=== PATIENT | female | born 1985 | race Caucasian/White ===

== ENCOUNTER → 2017-01-06 | Outpatient (CLI) | payer BC ==
--- NOTE | 2017-01-06 15:38 | RAD ---
CT abdomen and pelvis without contrast 01/06/2017 Indication: Left flank pain for 2 weeks, hematuria. Comparison: None. Technique: CT helical acquisition of the abdomen and pelvis was obtained without contrast. Coronal and sagittal reformations were obtained. PQRS Compliance Statement: One or more of the following individualized dose reduction techniques were utilized for this examination: 1. Automated exposure control 2. Adjustment of the mA and/or kV according to patient size 3. Use of iterative reconstruction technique Findings: Abdomen and pelvis: Heart size and visualized lung bases are within normal limits. Evaluation of the solid abdominopelvic viscera, lymphadenopathy and vasculature is limited in the absence of intravenous contrast. Unenhanced contours of the liver, spleen, gallbladder, adrenal glands, pancreas and kidneys are within normal limits. No hydroureteronephrosis or radiopaque urolithiasis. Abdominal aorta is normal in caliber. Small and large bowel loops are normal in caliber without obstruction. No abdominal free fluid. Mild distended unopacified urinary bladder, uterus and adnexa are within normal limits for age. No iliac or inguinal lymphadenopathy. No pelvic free fluid. There are no destructive osseous lesions. Impression: No CT etiology for patient's reported left flank pain, specifically no hydroureteronephrosis or urolithiasis.
== END | disposition home or self-care (01) ==
LOC: CT 14:58
PROVIDERS: ATTEND Nurse Practitioner Family
DX: R10.84 Generalized abdominal pain (principal); R31.9 Hematuria, unspecified
CPT/HCPCS: 74176

== ENCOUNTER 2018-09-07 20:40 | Emergency (ER) | payer BC ==
[~2018-09-07] VITALS: Ht 165.1 cm; Wt 64.4 kg
--- NOTE | 2018-09-07 20:51 | ED.ADGEN ---
Adult General Chief Complaint Chief Complaint ".. I got blood in my stool. .. it stock to go to the bathroom...." " This all started about 2 weeks ago.. Diarrhea - 4 x day or so, ...then some mucus stools, ... I seen Dr. [facility]ise [facility] PA... and they said avoid milk and put me on a special diet... but I still having burning and bright red blood when I stool... " HPI HPI Patient is a 33 year old female who presents with above hx and complaints of blood in stool. Pt. complaints of burning with defecation. Patient denies any previous history of ulcerative colitis or Crohn's. But her sister had a diagnosis of Crohn's at her age. Patient denies any history coagulopathy. Patient denies any trauma. Patient denies any rectal sex. Patient denies any history of constipation. Patient still having somewhat loose stools. Patient states the blood is bright red. Patient takes no NSAIDs. Patient is normally healthy. No recent travel or specific ill contacts. No contact with reptiles, amphibians, birds, ect. No hx bad food intake. On city water. Did have a course of antibiotics over a month ago for bacterial vaginosis. No hx of immunosuppression. Hx. of prior and deliveries. Review of Systems Review of Systems Constitutional: Denies fever or chills [] Eyes: Denies change in visual acuity, redness, or eye pain [] HENT: Denies nasal congestion or sore throat [] Respiratory: Denies cough or shortness of breath [] Cardiovascular: No additional information not addressed in HPI [] GI: Denies abdominal pain, nausea, vomiting, Hx of bloody stools and diarrhea [ ]Burning with defecation. : Denies dysuria or hematuria [] Musculoskeletal: Denies back pain or joint pain [] Integument: Denies rash or skin lesions [] Neurologic: Denies headache, focal weakness or sensory changes [] Endocrine: Denies polyuria or polydipsia [] All other systems were reviewed and found to be within normal limits, except as documented in this note. Family History Family History Sister has a history of Crohn's Current Medications Current Medications Current Medications Medications (Trade) Dose Ordered Sig/[place] Start Time Stop Time Status Last Admin Dose Admin Lactated Ringer's 1,000 ml @ 1,000 mls/hr Q1H 3/29/19 22:00 09/07/18 22:59 09/07/18 21:46 1,000 MLS/HR Allergies Allergies Allergies Coded Allergies Type Severity Reaction Last Updated Verified No Known Drug Allergies 09/07/18 No Physical Exam Physical Exam Constitutional: Well developed, well nourished, Moderately acute distress, non- toxic appearance. [] HENT: Normocephalic, atraumatic, bilateral external ears normal, oropharynx moist, no oral exudates, nose normal. [] Eyes: PERRLA, EOMI, conjunctiva normal, no discharge. [] Neck: Normal range of motion, no tenderness, supple, no stridor. [] Cardiovascular:Heart rate regular rhythm, no murmur [] Lungs & Thorax: Bilateral breath sounds clear to auscultation [] Abdomen: Bowel sounds normal, soft, lower pelvic tenderness, distended, no masses, no pulsatile masses. [Rectal shows no external hemorrhoids. No obvious large fissure. Digital exam did not produce active bleeding. Patient reports no particular tenderness on digital exam. No obvious bleeding from vaginal area or other discharge. Skin: Warm, dry, no erythema, no rash. No signs of petechiae or excessive bruising Back: No tenderness, no CVA tenderness. [] Extremities: No tenderness, no cyanosis, no clubbing, ROM intact, no edema. [] No psoas sign. Neurologic: Alert and oriented X 3, normal motor function, normal sensory function, no focal deficits noted. [] Psychologic: Affect anxious, judgement normal, mood normal. [] Current Patient Data Vital Signs Vital Signs Date Time Temp Pulse Resp B/P (MAP) Pulse Ox O2 Delivery O2 Flow Rate FiO2 09/07/18 20:55 97.8 120 18 100 Room Air Lab Results Laboratory Tests Test 09/07/18 20:55 09/07/18 21:00 09/07/18 21:09 09/07/18 21:31 Urine Collection Type Unknown Urine Color Yellow Urine Clarity Cloudy Urine pH 7.5 Urine Specific [place] 1.015 Urine Protein Neg (NEG-TRACE) Urine Glucose (UA) Neg mg/dL (NEG) Urine Ketones (Stick) Neg mg/dL (NEG) Urine Blood Small (NEG) Urine Nitrite Neg (NEG) Urine Bilirubin Neg (NEG) Urine Urobilinogen Dipstick 0.2 mg/dL (0.2 mg/dL) Urine Leukocyte Esterase Trace (NEG) Urine RBC 0 /HPF (0-2) Urine WBC 1-4 /HPF (0-4) Urine Squamous Epithelial Cells Occ /LPF Urine Bacteria 0 /HPF (0-FEW) Urine Opiates Screen Neg (NEG) Urine Methadone Screen Neg (NEG) Urine Barbiturates Neg (NEG) Urine Phencyclidine Screen Neg (NEG) Urine Amphetamine/Methamphetamine Neg (NEG) Urine Benzodiazepines Screen Neg (NEG) Urine Cocaine Screen Neg (NEG) Urine Cannabinoids Screen Neg (NEG) Urine Ethyl Alcohol Neg (NEG) Stool Occult Blood Positive (NEG) POC Urine HCG, Qualitative hcg negative (Negative) White Blood Count 7.7 x10^3/uL (4.0-11.0) Red Blood Count 4.65 x10^6/uL (3.50-5.40) Hemoglobin 13.6 g/dL (12.0-15.5) Hematocrit 41.1 % (36.0-47.0) Mean Corpuscular Volume 88 fL (79-100) Mean Corpuscular Hemoglobin 29 pg (25-35) Mean Corpuscular Hemoglobin Concent 33 g/dL (31-37) Red Cell Distribution Width 12.8 % (11.5-14.5) Platelet Count 264 x10^3/uL (140-400) Neutrophils (%) (Auto) 65 % (31-73) Lymphocytes (%) (Auto) 26 % (24-48) Monocytes (%) (Auto) 7 % (0-9) Eosinophils (%) (Auto) 2 % (0-3) Basophils (%) (Auto) 1 % (0-3) Neutrophils # (Auto) 5.0 x10^3uL (1.8-7.7) Lymphocytes # (Auto) 2.0 x10^3/uL (1.0-4.8) Monocytes # (Auto) 0.5 x10^3/uL (0.0-1.1) Eosinophils # (Auto) 0.2 x10^3/uL (0.0-0.7) Basophils # (Auto) 0.0 x10^3/uL (0.0-0.2) Prothrombin Time 10.9 SEC (9.4-11.4) Prothrombin Time INR 1.1 (0.9-1.1) PTT 29 SEC (23-33) Sodium Level 142 mmol/L (136-145) Potassium Level 3.2 mmol/L (3.5-5.1) L Chloride Level 106 mmol/L (98-107) Carbon Dioxide Level 26 mmol/L (21-32) Anion Gap 10 (6-14) Blood Urea Nitrogen 7 mg/dL (7-20) Creatinine 0.7 mg/dL (0.6-1.0) Estimated GFR (Cockcroft-Gault) 97.6 Glucose Level 110 mg/dL (70-99) H Calcium Level 9.1 mg/dL (8.5-10.1) Total Bilirubin 0.3 mg/dL (0.2-1.0) Direct Bilirubin 0.1 mg/dL (0.0-0.2) Aspartate Amino Transferase (AST) 16 U/L (15-37) Alanine Aminotransferase (ALT) 18 U/L (14-59) Alkaline Phosphatase 81 U/L (46-116) Total Protein 7.3 g/dL (6.4-8.2) Albumin 4.1 g/dL (3.4-5.0) Lipase 100 U/L (73-393) EKG EKG [] Radiology/Procedures Radiology/Procedures I interpretation of abdomen film shows[] increased stool throughout the colon. Does not appear to have an obstructive process. Pulmonary cardiac portion of acute abdomen film do not reflect any acute cardiopulmonary findings. No free air under the diaphragm. Course & Med Decision Making Course & Med Decision Making Pertinent Labs and Imaging studies reviewed. (See chart for details). Recommend follow-up with primary care for a scheduled colonoscopy. Follow-up cultures taken here. Remain on a completely clear fluid diet the next 2 days. No milk products. Return if any concerns. Avoid NSAIDs. [] Final Impression Final Impression 1. Outlet Bleeding[]- or lower GI- (Blood is bright red in stool) 2. X-ray suggestive of Constipation- in spite of hx of diarrhea Dragon Disclaimer Dragon Disclaimer This electronic medical record was generated, in whole or in part, using a voice recognition dictation system. Dragon Disclaimer This chart was dictated in whole or in part using Voice Recognition software in a busy, high-work load, and often noisy Emergency Department environment. It may contain unintended and wholly unrecognized errors or omissions. Discharge Summary Visit Information Final Diagnosis Problems Medical Problems: (1) Lower GI bleeding Status: Acute Brief Hospital Course Allergies Allergies Coded Allergies Type Severity Reaction Last Updated Verified No Known Drug Allergies 09/07/18 No Vital Signs Vital Signs Date Time Temp Pulse Resp B/P (MAP) Pulse Ox O2 Delivery O2 Flow Rate FiO2 09/07/18 20:55 97.8 120 18 100 Room Air Lab Results Laboratory Tests Test 09/07/18 20:55 09/07/18 21:00 09/07/18 21:09 09/07/18 21:31 Urine Collection Type Unknown Urine Color Yellow Urine Clarity Cloudy Urine pH 7.5 Urine Specific [place] 1.015 Urine Protein Neg (NEG-TRACE) Urine Glucose (UA) Neg mg/dL (NEG) Urine Ketones (Stick) Neg mg/dL (NEG) Urine Blood Small (NEG) Urine Nitrite Neg (NEG) Urine Bilirubin Neg (NEG) Urine Urobilinogen Dipstick 0.2 mg/dL (0.2 mg/dL) Urine Leukocyte Esterase Trace (NEG) Urine RBC 0 /HPF (0-2) Urine WBC 1-4 /HPF (0-4) Urine Squamous Epithelial Cells Occ /LPF Urine Bacteria 0 /HPF (0-FEW) Urine Opiates Screen Neg (NEG) Urine Methadone Screen Neg (NEG) Urine Barbiturates Neg (NEG) Urine Phencyclidine Screen Neg (NEG) Urine Amphetamine/Methamphetamine Neg (NEG) Urine Benzodiazepines Screen Neg (NEG) Urine Cocaine Screen Neg (NEG) Urine Cannabinoids Screen Neg (NEG) Urine Ethyl Alcohol Neg (NEG) Stool Occult Blood Positive (NEG) Bedside Urine HCG, Qualitative hcg negative (Negative) White Blood Count 7.7 x10^3/uL (4.0-11.0) Red Blood Count 4.65 x10^6/uL (3.50-5.40) Hemoglobin 13.6 g/dL (12.0-15.5) Hematocrit 41.1 % (36.0-47.0) Mean Corpuscular Volume 88 fL (79-100) Mean Corpuscular Hemoglobin 29 pg (25-35) Mean Corpuscular Hemoglobin Concent 33 g/dL (31-37) Red Cell Distribution Width 12.8 % (11.5-14.5) Platelet Count 264 x10^3/uL (140-400) Neutrophils (%) (Auto) 65 % (31-73) Lymphocytes (%) (Auto) 26 % (24-48) Monocytes (%) (Auto) 7 % (0-9) Eosinophils (%) (Auto) 2 % (0-3) Basophils (%) (Auto) 1 % (0-3) Neutrophils # (Auto) 5.0 x10^3uL (1.8-7.7) Lymphocytes # (Auto) 2.0 x10^3/uL (1.0-4.8) Monocytes # (Auto) 0.5 x10^3/uL (0.0-1.1) Eosinophils # (Auto) 0.2 x10^3/uL (0.0-0.7) Basophils # (Auto) 0.0 x10^3/uL (0.0-0.2) Prothrombin Time 10.9 SEC (9.4-11.4) Prothromb Time International Ratio 1.1 (0.9-1.1) Activated Partial Thromboplast Time 29 SEC (23-33) Sodium Level 142 mmol/L (136-145) Potassium Level 3.2 mmol/L (3.5-5.1) Chloride Level 106 mmol/L (98-107) Carbon Dioxide Level 26 mmol/L (21-32) Anion Gap 10 (6-14) Blood Urea Nitrogen 7 mg/dL (7-20) Creatinine 0.7 mg/dL (0.6-1.0) Estimated GFR (Cockcroft-Gault) 97.6 Glucose Level 110 mg/dL (70-99) Calcium Level 9.1 mg/dL (8.5-10.1) Total Bilirubin 0.3 mg/dL (0.2-1.0) Direct Bilirubin 0.1 mg/dL (0.0-0.2) Aspartate Amino Transf (AST/SGOT) 16 U/L (15-37) Alanine Aminotransferase (ALT/SGPT) 18 U/L (14-59) Alkaline Phosphatase 81 U/L (46-116) Total Protein 7.3 g/dL (6.4-8.2) Albumin 4.1 g/dL (3.4-5.0) Lipase 100 U/L (73-393) Brief Hospital Course Ms. Wright is a 33 old female who presented with suspect lower out let or GI bleeding. Suspect may be due to inflammatory bowel- Sister hx of Crohn's- recommend follow-up with GI for further evaluation. Did have findings of constipation on plain film Discharge Information Condition at Discharge: Improved, Stable Disposition/Orders: D/C to Home Dischare Medications Current Medications Lactated Ringer's 1,000 ml @ 1,000 mls/hr Q1H IV Last administered on at 21:46; Admin Dose 1,000 MLS/HR; Start 09/07/18 at 22:00; Stop 09/07/18 at 22:59 HAMMAD MCMANUS MD Sep 07, 2018 20:51
[2018-09-07 20:55] VITALS: BP 132/105
[2018-09-07 21:31] LABS: BARBITURATES NEG (NEG); BENZODIAZEPINES NEG (NEG); CANNABINOIDS NEG (NEG); COCAINE NEG (NEG); METHADONE NEG (NEG); OPIATES NEG (NEG); PHENCYCLIDINE NEG (NEG)
[2018-09-07 21:33] LABS: BILIRUBIN,URINE NEG (NEG); CLARITY,URINE CLOUDY; COLOR,URINE YELLOW; GLUCOSE,URINE NEG (NEG); NITRITE,URINE NEG (NEG); RBC,URINE 0 /HPF (0-2); UROBILINOGEN,URINE 0.2 mg/dL (0.2 mg/dL)
[2018-09-07 21:34] LABS: FECAL OB PT POSITIVE (NEG)
[2018-09-07 21:34] LABS: BACTERIA,URINE 0 /HPF (0-FEW); SQUAMOUS EPITHELIAL CELL,UR OCC /LPF
[2018-09-07 21:36] LABS: AMPHETAMINE/METHAMPHETAMINE NEG (NEG)
[2018-09-07 21:58] LABS: BASO % 1 % (0-3); EOS # 0.2 x10^3/uL (0.0-0.7); EOS % 2 % (0-3); HEMATOCRIT 41.1 % (36.0-47.0); HEMOGLOBIN 13.6 g/dL (12.0-15.5); LYMPH % 26 % (24-48); MEAN CORPUSCULAR HEMOGLOBIN 29 pg (25-35); MEAN CORPUSCULAR HGB CONC 33 g/dL (31-37); MEAN CORPUSCULAR VOLUME 88 fL (79-100); MONO # 0.5 x10^3/uL (0.0-1.1); MONO % 7 % (0-9); NEUT % 65 % (31-73); PLATELET COUNT 264 x10^3/uL (140-400); RED BLOOD COUNT 4.65 x10^6/uL (3.50-5.40); RED CELL DISTRIBUTION WIDTH 12.8 % (11.5-14.5); WHITE BLOOD COUNT 7.7 x10^3/uL (4.0-11.0)
[2018-09-07 22:00] LABS: ALBUMIN 4.1 g/dL (3.4-5.0); CALCIUM 9.1 mg/dL (8.5-10.1); CREATININE 0.7 mg/dL (0.6-1.0); DIRECT BILIRUBIN 0.1 mg/dL (0.0-0.2); GFR 97.6; POTASSIUM 3.2 mmol/L (3.5-5.1); TOTAL BILIRUBIN 0.3 mg/dL (0.2-1.0); TOTAL PROTEIN 7.3 g/dL (6.4-8.2)
[2018-09-07] MEDS ORDERED: IV RINGERS SOLUTION,LACTATED 1,000 ML IV SCH (22:00)
--- NOTE | 2018-09-07 22:40 | RAD ---
EXAM: Frontal view of the chest, AP views of the abdomen in upright and supine positions. CLINICAL INDICATION: Rectal bleeding, diarrhea COMPARISON: CT 01/06/2017 FINDINGS and IMPRESSION: The heart is not enlarged. Mediastinal and hilar contours are normal. No focal parenchymal airspace opacity. No pleural effusion or pneumothorax. No abnormal small or large bowel dilatation. Moderate colonic stool content. No abnormal soft tissue mass effect. No suspicious calcifications are seen. No free intraperitoneal gas. Electronically signed by: Salomon Phan MD (09/07/2018 10:37 PM) [facility]
== END 2018-09-07 21:15 | disposition home or self-care (01) ==
LOC: ER 20:40
DX: K92.2 Gastrointestinal hemorrhage, unspecified (principal); K59.00 Constipation, unspecified; R19.7 Diarrhea, unspecified
CPT/HCPCS: 36415; 74022; 80048; 80076; 80307; 81001; 81025; 82274; 83690; 85025; 85610; 85730; 87045; 87086; 96360; 99284; J7120

== ENCOUNTER 2019-12-06 11:02 | Emergency (ER) | payer BC ==
[~2019-12-06] VITALS: Ht 165.1 cm; Wt 68.8 kg
[2019-12-06 12:04] LABS: BILIRUBIN,URINE NEG (NEG); CLARITY,URINE CLEAR; COLOR,URINE YELLOW; GLUCOSE,URINE NEG (NEG); NITRITE,URINE NEG (NEG); UROBILINOGEN,URINE 0.2 mg/dL (0.2 mg/dL)
[2019-12-06 12:05] LABS: BACTERIA,URINE 0 /HPF (0-FEW); SQUAMOUS EPITHELIAL CELL,UR FEW /LPF; WBC,URINE OCC /HPF (0-4)
--- NOTE | 2019-12-06 12:38 | PHYS DOC ---
Past History Past Medical History: Other Additional Past Medical Histor: COLITIS Past Surgical History: , Tubal ligation Additional Smoking Information: PACK/DAY Alcohol Use: Occasionally Drug Use: None General Adult EDM: Chief Complaint: DIZZY/LIGHT HEADED HPI: HPI: Patient is a 35-year-old female presenting to the ED with a chief complaint of dizziness. Patient states that she woke up this morning and was not feeling right. Patient has no specific complaint. Patient does state that she has dental issues and is waiting to see her dentist next week to have tooth extracted. Patient also states that she has a history of colitis but she does not have any abdominal pain or nausea or vomiting, fever, chills, chest pain or shortness of breath. Patient denies or dysuria. Review of Systems: Review of Systems: Constitutional: Denies fever or chills Eyes: Denies change in visual acuity HENT: Denies nasal congestion or sore throat Respiratory: Denies cough or shortness of breath Cardiovascular: Denies chest pain or edema GI: Denies abdominal pain, nausea, vomiting, bloody stools or diarrhea : Denies dysuria Musculoskeletal: Denies back pain or joint pain Neurologic: Patient complains of lightheadedness and dizziness Heart Score: Risk Factors: Risk Factors: DM, Current or recent (<one month) smoker, HTN, HLP, family history of CAD, obesity. Risk Scores: Score 0 - 3: 2.5% MACE over next 6 weeks - Discharge Home Score 4 - 6: 20.3% MACE over next 6 weeks - Admit for Clinical Observation Score 7 - 10: 72.7% MACE over next 6 weeks - Early Invasive Strategies Allergies: Allergies: Allergies Coded Allergies Type Severity Reaction Last Updated Verified No Known Drug Allergies 09/07/18 No Physical Exam: PE: Constitutional: Well developed, well nourished, no acute distress, non-toxic appearance. [] HENT: Normocephalic, atraumatic, dental caries in the left lower jaw Eyes: EOMI Neck: Normal range of motion, Supple Cardiovascular:Heart rate regular rhythm Lungs & Thorax: Bilateral breath sounds clear to auscultation [] Abdomen: Bowel sounds normal, soft, no tenderness Extremities: No tenderness, ROM intact Neurologic: Alert and oriented X 3 Current Patient Data: Labs: Laboratory Tests Test 12/06/19 11:20 12/06/19 11:32 Urine Collection Type Unknown Urine Color Yellow Urine Clarity Clear Urine pH 7.0 Urine Specific [place] 1.015 Urine Protein Neg (NEG-TRACE) Urine Glucose (UA) Neg mg/dL (NEG) Urine Ketones (Stick) Neg mg/dL (NEG) Urine Blood Small (NEG) Urine Nitrite Neg (NEG) Urine Bilirubin Neg (NEG) Urine Urobilinogen Dipstick 0.2 mg/dL (0.2 mg/dL) Urine Leukocyte Esterase Neg (NEG) Urine RBC 3-5 /HPF (0-2) Urine WBC Occ /HPF (0-4) Urine Squamous Epithelial Cells Few /LPF Urine Bacteria 0 /HPF (0-FEW) POC Urine HCG, Qualitative hcg negative (Negative) Vital Signs: Vital Signs Date Time Temp Pulse Resp B/P (MAP) Pulse Ox O2 Delivery O2 Flow Rate FiO2 12/06/19 11:15 98.4 108 20 154/80 (104) 100 Room Air EKG: EKG: [] Radiology/Procedures: Radiology/Procedures: [] Course & Med Decision Making: Course & Med Decision Making Pertinent Labs reviewed. (See chart for details) Urine is negative. UA shows no UTI. Ordered labs. If labs are negative, patient will be discharged home with oral antibiotics for dental caries. Labs are within normal limits. Patient follow-up with dentist. Patient was discharged home on oral antibiotics. Discussed results and plan of care with patient. Patient is instructed to follow up with PCP in one to 2 days. Appropriate discharge instructions given to patient to return to the ED or to seek immediate medical evaluation. Patient is instructed to return to the ED if symptoms worsen or if any concerns. Sully Disclaimer: Sully Disclaimer: This electronic medical record was generated, in whole or in part, using a voice recognition dictation system. Departure Departure: Impression: Primary Impression: Dental caries Additional Impression: Dizziness Disposition: HOME/RESIDENCE PRIOR TO ADM Condition: STABLE Referrals: TABBY CORTEZ PAC (PCP) Patient Instructions: Dental Caries, Dizziness Additional Instructions: Discussed results and plan of care with patient. Patient is instructed to follow up with PCP in one to 2 days. Appropriate discharge instructions given to patient to return to the ED or to seek immediate medical evaluation. Patient is instructed to return to the ED if symptoms worsen or if any concerns. Scripts Penicillin V Potassium (PENICILLIN V POTASSIUM) 500 Mg Tablet 1 TAB PO QID for dental caries, #40 TAB Prov: MISA CROOK DO 12/06/19 Justification of Admission: Justification of Admission: Justification of Admission Dx: MISA Apodaca DO Dec 06, 2019 12:38
[2019-12-06 12:41] LABS: BASO # 0.1 x10^3/uL (0.0-0.2); BASO % 1 % (0-3); EOS # 0.1 x10^3/uL (0.0-0.7); EOS % 1 % (0-3); HEMATOCRIT 42.3 % (36.0-47.0); LYMPH # 1.1 x10^3/uL (1.0-4.8); LYMPH % 12 % (24-48); MEAN CORPUSCULAR HEMOGLOBIN 30 pg (25-35); MEAN CORPUSCULAR HGB CONC 33 g/dL (31-37); MEAN CORPUSCULAR VOLUME 91 fL (79-100); MONO # 0.4 x10^3/uL (0.0-1.1); MONO % 5 % (0-9); NEUT # 7.5 x10^3uL (1.8-7.7); NEUT % 82 % (31-73); PLATELET COUNT 254 x10^3/uL (140-400); RED BLOOD COUNT 4.65 x10^6/uL (3.50-5.40); RED CELL DISTRIBUTION WIDTH 13.3 % (11.5-14.5); WHITE BLOOD COUNT 9.1 x10^3/uL (4.0-11.0)
[2019-12-06 12:44] LABS: CALCIUM 8.7 mg/dL (8.5-10.1); CREATININE 0.8 mg/dL (0.6-1.0); GFR 83.1; POTASSIUM 3.8 mmol/L (3.5-5.1)
[2019-12-06 12:49] LABS: ALBUMIN 3.8 g/dL (3.4-5.0); ALBUMIN/GLOBULIN RATIO 1.2 (1.0-1.7); TOTAL BILIRUBIN 0.4 mg/dL (0.2-1.0); TOTAL PROTEIN 6.9 g/dL (6.4-8.2)
[2019-12-06] MEDS ORDERED: PENI500T PO (13:02)
[2019-12-06 13:10] VITALS: BP 154/82
== END 2019-12-06 13:11 | disposition home or self-care (01) ==
LOC: ER 11:02
DX: K02.9 Dental caries, unspecified (principal); R42 Dizziness and giddiness; Z98.51 Tubal ligation status; Z98.890 Other specified postprocedural states; Z87.891 Personal history of nicotine dependence
CPT/HCPCS: 36415; 80053; 81001; 81025; 85025; 99283

== ENCOUNTER 2020-08-23 03:13 | Emergency (ER) | payer BC ==
[~2020-08-23] VITALS: Ht 165.1 cm; Wt 68.8 kg
[~2020-08-23 03:13] MED LIST: PENI500T PO
--- NOTE | 2020-08-23 03:36 | EKG ---
[facility] ED [facility] [address] [place] [id number] Test Date: 2020-08-23 Test Time: 03:24:33 Pat Name: RICHARD MONROY Department: Room: Gender: F [employer] Specialist: : [id number] Requested By: HAMMAD MCMANUS Order Number: [id number] Reading MD: Measurements Intervals [place] Rate: 122 P: 264 OK: 98 QRS: -6 QRSD: 82 T: 41 QT: 302 QTc: 431 Interpretive Statements SINUS TACHYCARDIA LEFTWARD AXIS S1,S2,S3 PATTERN NO SPECIFIC ECG ABNORMALITIES RI6.02 No previous ECG available for comparison
--- NOTE | 2020-08-23 03:49 | PHYS DOC ---
Past History Past Medical History: Other Additional Past Medical Histor: COLITIS, TACHYCARDIA Past Surgical History: , Tubal ligation Smoking: Cigarettes Alcohol Use: Occasionally Drug Use: None General Adult EDM: Chief Complaint: RAPID HEART RATE HPI: HPI: "...I am having problems with fast heart rate again.. it so fast I could not get to sleep.. I did see a cardiology once.. but my EKG was normal.. and I never follow up for further testing... It just start beating fast for no reason all of sudden.. did nt have this problem until last few years..." Patient is a 35 year old female who presents with episodes of rapid heart rate. Patient denies any excessive caffeine use. Patient denies any overdose or counter medications or supplements. Patient does smoke tobacco. Patient has h ad past medical history of colitis was diagnosed by colonoscopy and biopsy. Patient has had some history of anxiety in the past. No history of coagulopathy with her family members. Poorly father had cardiac issues starting at age 40 and hyperthyroidism. Patient does occasionally drink alcohol but denies any illicit drug use. Patient no longer takes her colitis medications. Patient states no significant increase in job stresses portion she works at [email or web address] and [employer]. Patient normally follows with [facility] for care. Patient was treated for anxiety in the past with became anxious about taking the anxiety meds so she stopped them. Recently fractured tooth #17 and has dental followup this coming week. Review of Systems: Review of Systems: Constitutional: Denies fever or chills Eyes: Denies change in visual acuity HENT: Denies nasal congestion or sore throat. Fractured tooth #17 Respiratory: Denies cough or shortness of breath Cardiovascular: Complains of tachycardia GI: Denies abdominal pain, nausea, vomiting, bloody stools or diarrhea : Denies dysuria Musculoskeletal: Denies back pain or joint pain Integument: Denies rash Neurologic: Denies headache, focal weakness or sensory changes Endocrine: Denies polyuria or polydipsia Lymphatic: Denies swollen glands Psychiatric: Denies depression or anxiety Family History: Family History: Father had problems with hyperthyroidism and cardiac disorders at age 40 Current Medications: Current Meds: Current Medications Medications (Trade) Dose Ordered Sig/[place] Start Time Stop Time Status Last Admin Dose Admin Lactated Ringer's 1,000 ml @ 1,000 mls/hr Q1H 08/23/20 04:00 08/23/20 04:59 08/23/20 03:41 1,000 MLS/HR Metoprolol Tartrate (Lopressor Vial) 5 mg 1X ONCE 08/23/20 04:00 08/23/20 04:01 08/23/20 03:41 5 MG Allergies: Allergies: Allergies Coded Allergies Type Severity Reaction Last Updated Verified No Known Drug Allergies 09/07/18 No Physical Exam: PE: Constitutional: Well developed, well nourished, moderate acute distress, non- toxic appearance. [] HENT: Normocephalic, atraumatic, bilateral external ears normal, oropharynx moist, no oral exudates, nose normal. [] Eyes: PERRLA, EOMI, conjunctiva normal, no discharge. [] Neck: Normal range of motion, no tenderness, supple, no stridor. [] Cardiovascular: Tachycardia heart rate regular rhythm, no murmur [] bedside monitor shows a sinus tachycardia. Lungs & Thorax: Bilateral breath sounds clear to auscultation [] Abdomen: Bowel sounds normal, soft, no tenderness, no masses, no pulsatile masses. Old surgery scars. Skin: Warm, dry, no erythema, no rash. [] Back: No tenderness, no CVA tenderness. [] Extremities: No tenderness, no cyanosis, no clubbing, ROM intact, no edema. No cording appreciated Neurologic: Alert and oriented X 3, normal motor function, normal sensory function, no focal deficits noted. [] Psychologic: Affect anxious, judgement normal, mood normal. [] Current Patient Data: Vital Signs: Vital Signs Date Time Temp Pulse Resp B/P (MAP) Pulse Ox O2 Delivery O2 Flow Rate FiO2 08/23/20 03:41 105 166/106 08/23/20 03:24 97.6 16 100 Room Air EKG: EKG: My interpretation of EKG shows a supraventricular tachycardic at 122 bpm. There is some leftward axis.. No findings acute STEMI of contralateral changes. At 0224 hrs. My interpretation of second EKG at 0523 hrs. shows a sinus rhythm with mild leftward axis. Rate of 86. No findings acute STEMI of contralateral changes. [] Radiology/Procedures: Radiology/Procedures: [] Heart Score: C/O Chest Pain: No HEART Score for Chest Pain: HEART Score for Chest Pain Response (Comments) Value History Slighlty/Non-Suspicious 0 ECG Nonspecific Repolarizatio 1 Age < 45 0 Risk Factors 1 or 2 Risk Factors 1 Troponin < Normal Limit 0 Total 2 Risk Factors: Risk Factors: DM, Current or recent (<one month) smoker, HTN, HLP, family history of CAD, obesity. Risk Scores: Score 0 - 3: 2.5% MACE over next 6 weeks - Discharge Home Score 4 - 6: 20.3% MACE over next 6 weeks - Admit for Clinical Observation Score 7 - 10: 72.7% MACE over next 6 weeks - Early Invasive Strategies Course & Med Decision Making: Course & Med Decision Making Pertinent Labs and Imaging studies reviewed. (See chart for details) Patient take Lopressor 25 mg twice a day. Follow-up with primary care. May need larger dose of Lopressor or sustained episodes of supraventricular tachycardia. Patient follow-up with cardiology. Patient return if any concerns. Patient avoid caffeine. Patient keep dental appointment. Prescri ption given for continuation of amoxicillin 500 mg 3 times a day until follow-up with dentist. Impression: 1. Supraventricular tachycardia 2. Accelerated hypertension 3. Dental Fx. 17/Decay [] Dragon Disclaimer: Dragon Disclaimer: This electronic medical record was generated, in whole or in part, using a voice recognition dictation system. Departure Departure: Referrals: TABBY CORTEZ (PCP) Scripts Amoxicillin (AMOXICILLIN) 500 Mg Capsule 1 CAP PO TID for dental fx for 10 Days, #30 CAP Prov: HAMMAD MCMANUS MD 08/23/20 Metoprolol Tartrate (METOPROLOL TARTRATE) 25 Mg Tablet 1 TAB PO BID for htn,tachy for 30 Days, #60 TAB 1 Refill Prov: HAMMAD MCMANUS MD 08/23/20 [place] Disclaimer This chart was dictated in whole or in part using Voice Recognition software in a busy, high-work load, and often noisy Emergency Department environment. It may contain unintended and wholly unrecognized errors or omissions. Dragon Disclaimer This chart was dictated in whole or in part using Voice Recognition software in a busy, high-work load, and often noisy Emergency Department environment. It may contain unintended and wholly unrecognized errors or omissions. HAMMAD MCMANUS MD Aug 23, 2020 03:49
[2020-08-23 03:59] LABS: BASO # 0.1 x10^3/uL (0.0-0.2); BASO % 0 % (0-3); EOS # 0.2 x10^3/uL (0.0-0.7); EOS % 1 % (0-3); HEMATOCRIT 41.3 % (36.0-47.0); HEMOGLOBIN 13.5 g/dL (12.0-15.5); LYMPH # 1.6 x10^3/uL (1.0-4.8); LYMPH % 12 % (24-48); MEAN CORPUSCULAR HEMOGLOBIN 29 pg (25-35); MEAN CORPUSCULAR HGB CONC 33 g/dL (31-37); MEAN CORPUSCULAR VOLUME 90 fL (79-100); MONO # 0.7 x10^3/uL (0.0-1.1); MONO % 5 % (0-9); NEUT # 11.3 x10^3uL (1.8-7.7); NEUT % 82 % (31-73); PLATELET COUNT 257 x10^3/uL (140-400); RED BLOOD COUNT 4.58 x10^6/uL (3.50-5.40); RED CELL DISTRIBUTION WIDTH 13.5 % (11.5-14.5); WHITE BLOOD COUNT 13.8 x10^3/uL (4.0-11.0)
[2020-08-23] MEDS ORDERED: IV RINGERS SOLUTION,LACTATED 1,000 ML IV SCH (04:00)
[2020-08-23] MEDS ORDERED: METOPROLOL TARTRATE 5 MG/5 ML VIAL. IV ONE (04:00)
[2020-08-23 04:01] LABS: CALCIUM 9.1 mg/dL (8.5-10.1); CREATININE 0.7 mg/dL (0.6-1.0); GFR 96.4; POTASSIUM 3.5 mmol/L (3.5-5.1)
[2020-08-23 04:04] VITALS: BP 144/92
[2020-08-23 04:13] LABS: ALBUMIN 4.1 g/dL (3.4-5.0); DIRECT BILIRUBIN 0.1 mg/dL (0.0-0.2); TOTAL BILIRUBIN 0.2 mg/dL (0.2-1.0); TOTAL PROTEIN 6.7 g/dL (6.4-8.2)
--- NOTE | 2020-08-23 04:14 | RAD ---
Chest AP portable at 0346: Reason for examination: Tachycardia and dyspnea. The heart size is normal. Mediastinum is unremarkable. Lung reno are clear. No acute bony abnormali ties are seen. Impression: No acute cardiopulmonary disease. Electronically signed by: Mary Munguia MD (08/23/2020 4:12 AM) TAO
[2020-08-23] MEDS ORDERED: METO25TA4 PO (05:11)
[2020-08-23 05:27] LABS: AMPHETAMINE/METHAMPHETAMINE NEG (NEG); BARBITURATES NEG (NEG); BENZODIAZEPINES NEG (NEG); CANNABINOIDS NEG (NEG); COCAINE NEG (NEG); METHADONE NEG (NEG); OPIATES NEG (NEG); PHENCYCLIDINE NEG (NEG)
[2020-08-23 05:45] LABS: BACTERIA,URINE 0 /HPF (0-FEW); BILIRUBIN,URINE NEG (NEG); CLARITY,URINE CLEAR; COLOR,URINE COLORLESS; GLUCOSE,URINE NEG (NEG); NITRITE,URINE NEG (NEG); RBC,URINE 0 /HPF (0-2); SQUAMOUS EPITHELIAL CELL,UR OCC /LPF; UROBILINOGEN,URINE 0.2 mg/dL (0.2 mg/dL); WBC,URINE 0 /HPF (0-4)
[2020-08-23] MEDS ORDERED: AMOX500C PO (06:07)
--- NOTE | 2020-08-23 06:17 | EKG ---
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
[2020-08-23 12:47] LABS: THYROID STIM HORMONE (TSH) 1.804 uIU/mL (0.358-3.740)
== END 2020-08-23 06:00 | disposition home or self-care (01) ==
LOC: ER 03:13
DX: S02.5XXA Fracture of tooth (traumatic), initial encounter for closed fracture (principal); I47.1 Supraventricular tachycardia; I10 Essential (primary) hypertension; F17.210 Nicotine dependence, cigarettes, uncomplicated; Z98.51 Tubal ligation status; X58.XXXA Exposure to other specified factors, initial encounter; Y93.89 Activity, other specified; Y92.89 Other specified places as the place of occurrence of the external cause; Y99.8 Other external cause status
CPT/HCPCS: 36415; 71045; 80048; 80061; 80076; 80307; 81001; 82550; 83690; 83735; 83880; 84443; 84484; 85025; 85379; 85610; 85730; 93005; 96361; 96374; 99285; J3490; J7120